=== PATIENT | male | born 1965 | race Caucasian/White ===

== ENCOUNTER 2019-07-28 12:27 | Emergency (ER) | payer SELFPAY ==
[~2019-07-28] VITALS: Ht 182.9 cm; Wt 77.3 kg
[2019-07-28 12:30] VITALS: Ht 182.9 cm; Wt 77.3 kg
[2019-07-28 14:26] VITALS: BP 137/86
== END 2019-07-28 14:26 | disposition home or self-care (01) ==
LOC: D.ER 12:27
DX: Z03.89 Encounter for observation for other suspected diseases and conditions ruled out (principal)